=== PATIENT | female | born 1975 | race Caucasian/White ===

== ENCOUNTER 2017-04-18 07:18 | Observation (INO) | payer BC ==
[2017-04-15 14:10] LABS: HEMATOCRIT 39.7 % (36.0-48.0); HEMOGLOBIN 13.4 g/dL (12.0-16.0)
[2017-04-15 14:20] LABS: A/G RATIO 1.2 (0.7-1.9); ALBUMIN 4.1 G/DL (3.5-5.0); ALKALINE PHOSPHATASE 86 U/L (45-117); BUN (BLOOD UREA NITROGEN) 62 MG/DL (6-23); CALCIUM, SERUM 10.3 MG/DL (8.5-10.4); CHLORIDE, SERUM 105 MMOL/L (96-112); CO2 (CARBON DIOXIDE) 28 MMOL/L (24-34); CREATININE 3.49 MG/DL (0.55-1.02); GFR AFRICAN AMERICAN 18 ML/MIN (>=60); GFR NON AFRICAN AMERICAN 16 ML/MIN (>=60); GLOBULIN 3.3 G/DL (2.5-4.1); GLUCOSE, SERUM 87 MG/DL (60-99); POTASSIUM, SERUM 4.5 MMOL/L (3.5-5.3); SGOT(AST) 12 U/L (5-40); SGPT(ALT) 18 U/L (5-65); SODIUM, SERUM 140 MMOL/L (135-148); TOTAL BILIRUBIN 0.5 MG/DL (0-1.2); TOTAL PROTEIN 7.4 G/DL (6.0-8.5)
--- NOTE | ~2017-04-18 | OP ---
Record Of Operation [facility] [address] [place]. [address] NAME: SABAS IYER : 77 STATUS : ADM Luba PAT#: [id number] AGE: 41 ADM/REG DATE : 04/18/17 MR#: [id number] REPORT SERV DATE: 04/18/17 DICTATED BY: ARMIN CONDON DATE: 04/18/17 REPORT STATUS : Draft TRANSCRIBED BY: MODL DATE: 04/18/17 DATE OF PROCEDURE: 04/18/2017 PREOPERATIVE DIAGNOSIS: Primary hyperparathyroidism. POSTOPERATIVE DIAGNOSIS: Primary hyperparathyroidism. PROCEDURE: Bilateral cervical exploration and subtotal parathyroidectomy. SURGEON: Armin Condon M.D. RESIDENT SURGEON: Dino Cullen. ANESTHESIA: General. ESTIMATED BLOOD LOSS: 20 mL. BRIEF HISTORY AND DESCRIPTION OF FINDINGS: The patient had been diagnosed with hypercalcemic primary hyperparathyroidism in the setting of chronic kidney disease and elevated chloride phosphate ratio, parathyroid hormone levels have been in the 300-400 range. Ultrasound suggested an abnormality in the right superior location intraoperatively, the preincision intraoperative parathyroid hormone level (IO PTH) was 491 pg/mL. 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 Both glands on the left were similarly enlarged and both right-sided glands and the left inferior gland were resected, one half of the left superior gland was resected over clip maintaining its blood supply and a 6-0 Prolene suture marked just anterior to the gland well posterior to the course of recurrent nerve at the midportion of the thyroid. The 20- minute post excision IO PTH value fell to 63 pg/mL consistent with curative resection. DETAILS OF PROCEDURE: The patient arrived in the operating suite and was placed on the table in supine position. General anesthesia obtained via an endotracheal tube. The patient appropriately positioned. The neck and upper chest were prepped and draped in a sterile manner. A cervical collar incision was performed. Subplatysmal flaps elevated with blunt dissection and cautery. Strap muscles were split in the midline. Planned dissection was created between the right thyroid lobe and overlying strap muscles, middle thyroid vein divided between clips. Readily seen was a large maroon turgid parathyroid at the inferior pole on the right anteriorly. It was carefully mobilized, blood supply divided between clips, and the gland was sent for permanent histology. Posterior to the midportion of the thyroid just cephalad to the main trunk of the inferior thyroid artery and posterior to the course of recurrent nerve, a maroon turgid enlarged gland was identified as well. It was initially left undisturbed and attention turned to the left. Upon mobilizing the left, similarly enlarged abnormal glands were noted in typical inferior and superior locations with a superior gland far posterior to the course of the recurrent nerve, had a very eccentric blood supply and was ultimately chosen for subtotal resection. This gland was mobilized and resected over clip, maintaining viable remnant, marked with a Prolene as Record Of Operation [facility] [address] [place]. [address] NAME: SABAS IYER : 77 STATUS : ADM Luba PAT#: [id number] AGE: 41 ADM/REG DATE : 04/18/17 MR#: [id number] REPORT SERV DATE: 04/18/17 DICTATED BY: ARMIN CONDON DATE: 04/18/17 REPORT STATUS : Draft TRANSCRIBED BY: ESTEPHANIE DATE: 04/18/17 described above. The inferior gland was mobilized, blood supply divided between clips, and inferior gland was totally resected. Hemostasis was good on the left, and Surgicel was placed about the parathyroid remnant. Attention was turned to the right and the previously identified superior gland was carefully mobilized avoiding injury to the recurrent nerve. Blood supply divided between clips. Specimen totally resected. The strap muscle was then approximated with 3-0 Vicryl, platysma with 4-0 Vicryl, skin closure with subcuticular 5-0 Monocryl, and sterile dressing was applied. The patient awakened, extubated, and taken to PACU. /ESTEPHANIE Armin Condon M.D. / [id number] CC: Armin Condon M.D.
[~2017-04-18 07:18] MED LIST: ACET500CAP PO; COZAAR100 MG PO; HARD NAILS PO; MULTI VIT GUMMY PO; RED YEAS1 PO; ROCALTROL0.25 MCG PO
[2017-04-18 08:38] LABS: BUN (BLOOD UREA NITROGEN) 56 MG/DL (6-23); CALCIUM, SERUM 10.1 MG/DL (8.5-10.4); CHLORIDE, SERUM 109 MMOL/L (96-112); CO2 (CARBON DIOXIDE) 27 MMOL/L (24-34); CREATININE 3.46 MG/DL (0.55-1.02); GFR AFRICAN AMERICAN 18 ML/MIN (>=60); GFR NON AFRICAN AMERICAN 16 ML/MIN (>=60); GLUCOSE, SERUM 90 MG/DL (60-99); POTASSIUM, SERUM 4.2 MMOL/L (3.5-5.3); SODIUM, SERUM 144 MMOL/L (135-148)
[2017-04-18 09:44] LABS: PTH (INTRAOPERATIVE) 490.8 PG/ML (10.0-65.0); PTH TAT 0 Hrs 22 Mins
[2017-04-18 11:30] LABS: PTH (INTRAOPERATIVE) 63.4 PG/ML (10.0-65.0); PTH TAT 0 Hrs 25 Mins
[2017-04-19 06:53] LABS: BASOPHILS 0.2 %; BASOPHILS ABSOLUTE 0.02 10/3/uL (0.0-0.16); EOSINOPHILS 0.6 %; EOSINOPHILS ABSOLUTE 0.07 10/3/uL (0.0-0.53); HEMOGLOBIN 11.5 g/dL (12.0-16.0); IMMATURE GRANULOCYTES 0.3 %; IMMATURE GRANULOCYTES ABSOLUTE 0.03 10/3/uL (0.0-0.11); LYMPHOCYTES ABSOLUTE 2.56 10/3/uL (0.67-4.30); MEAN CORPUS HGB CONC 32.9 g/dL (32.0-36.0); MEAN CORPUSCULAR HEMOGLOB 30.6 pg (26.0-34.0); MEAN CORPUSCULAR VOLUME 93.1 fL (80-100); MEAN PLATELET VOLUME 11.8 fL (9.2-13.0); MONOCYTES 7.1 %; MONOCYTES ABSOLUTE 0.82 10/3/uL (0.21-1.20); NEUTROPHILS 69.8 %; NEUTROPHILS ABSOLUTE 8.12 10/3/uL (2.02-8.40); PLATELET COUNT 173 10/3/uL (150-400); RBC DISTRIBUTION WIDTH 13.2 % (12.0-16.0); RED CELL COUNT 3.76 10/6/uL (4.0-5.6)
[2017-04-19 06:55] LABS: MANUAL DIFF NO %; WHITE BLOOD CELLS 11.6 10/3/uL (4.5-10.5)
[2017-04-19 07:04] LABS: BUN (BLOOD UREA NITROGEN) 54 MG/DL (6-23); CALCIUM, SERUM 8.3 MG/DL (8.5-10.4); CHLORIDE, SERUM 106 MMOL/L (96-112); CO2 (CARBON DIOXIDE) 25 MMOL/L (24-34); CREATININE 4.02 MG/DL (0.55-1.02); GFR AFRICAN AMERICAN 15 ML/MIN (>=60); GFR NON AFRICAN AMERICAN 13 ML/MIN (>=60); GLUCOSE, SERUM 115 MG/DL (60-99); PHOSPHORUS, SERUM 2.8 MG/DL (2.5-4.5); POTASSIUM, SERUM 4.4 MMOL/L (3.5-5.3); SODIUM, SERUM 138 MMOL/L (135-148)
[2017-04-19] MEDS ORDERED: CALTRAT600 PO (08:35)
== END 2017-04-19 14:11 | disposition home or self-care (01) ==
LOC: SDC 07:18 → SDC/OF 11:33 → 5SO 14:02
PROVIDERS: Specialist
PROC: 0GTR0ZZ Resection of Parathyroid Gland, Open Approach (ICD-10-PCS; principal; 2017-04-18 09:00)
DX: E21.0 Primary hyperparathyroidism (principal); I10 Essential (primary) hypertension; I12.9 Hypertensive chronic kidney disease with stage 1 through stage 4 chronic kidney disease, or unspecified chronic kidney disease; N18.4 Chronic kidney disease, stage 4 (severe); G40.909 Epilepsy, unspecified, not intractable, without status epilepticus; Z88.5 Allergy status to narcotic agent; Z90.89 Acquired absence of other organs; Z79.899 Other long term (current) drug therapy; Z98.890 Other specified postprocedural states
CPT/HCPCS: 36415; 80048; 80053; 82310; 83735; 83970; 84100; 84703; 85014; 85018; 85025; 88305; 88313; 93005; A9270-GY; G0378; J1170; J2250; J2405; J2710; J3010